=== PATIENT | male | born 1950 | race Caucasian/White ===

== ENCOUNTER → 2018-03-28 | Outpatient (CLI) | payer OTHER, MEDICARE ==
[~2018-03-28] MED LIST: AMARYL4 MG PO; ATIVAN0.5 MG PO; ATORVASTATIN CA80 MG PO; BAYER CHEWABLE81 MG PO; COREG25 MG PO; ELIQUIS5 MG PO; JANUMET XR 50-1 EACH PO; LISINOPRIL20 MG PO; NORCO 5-325 TA1 EACH PO; NORVASC5 MG PO; TRULICITY0.75 MG/0. SUBQ; ZANAFLEX4 MG PO; ZANTAC 150MG T150 MG PO
== END ==
LOC: M.MRI 08:19
DX: S83.241A Other tear of medial meniscus, current injury, right knee, initial encounter (principal); M17.0 Bilateral primary osteoarthritis of knee; M25.761 Osteophyte, right knee; X58.XXXA Exposure to other specified factors, initial encounter; Y93.89 Activity, other specified; Y92.89 Other specified places as the place of occurrence of the external cause; Y99.8 Other external cause status

== ENCOUNTER 2018-04-25 07:06 | Inpatient (IN) | payer OTHER, MEDICARE ==
[2018-04-13 09:56] LABS: URINE BILIRUBIN NEGATIVE (Negative); URINE BLOOD NEGATIVE (Negative); URINE CLARITY CLEAR; URINE COLOR YELLOW; URINE GLUCOSE-RANDOM NEGATIVE (Negative); URINE KETONES NEGATIVE (Negative); URINE LEUKOCYTES-REFLEX NEGATIVE (Negative); URINE NITRITE-REFLEX NEGATIVE (Negative); URINE PROTEIN NEGATIVE (Negative); URINE SPECIFIC GRAVITY 1.025 (1.005-1.030); URINE UROBILINOGEN 0.2 E.U./dl (0.2-1.0)
[2018-04-13 10:39] LABS: HEMATOCRIT 41.6 % (42.0-52.0); HEMOGLOBIN 13.6 gm/dL (14.0-18.0); MCH 29.3 pg (26.0-34.0); MCHC 32.7 g/dL (28.0-37.0); MCV 89.7 fL (80.0-100.0); MPV 8.7 fl. (7.2-11.1); RBC 4.64 mil/uL (4.50-6.00); RDW-CV 14.1 % (10.5-14.5); WBC 8.8 thou/uL (4.0-11.0)
[2018-04-13 10:51] LABS: INR 1.1; PROTIME 10.9 Seconds (9.20-11.50)
[2018-04-13 10:54] LABS: ALBUMIN 3.5 g/dL (3.4-5.0); CALCIUM 8.9 mg/dL (8.5-10.1); CREATININE 0.8 mg/dL (0.6-1.3); POTASSIUM 4.1 mmol/L (3.5-5.1); TOTAL BILIRUBIN 0.6 mg/dL (<0.1-1.0); TOTAL PROTEIN 7.5 g/dL (6.4-8.2)
--- NOTE | 2018-04-13 17:48 | EKG ---
[place] [address] ELECTROCARDIOGRAM REPORT Name: ROCAEL SOLIZ Room: PRE IN [facility].#: [id number] Admission: Attend Phys: Calixto Almaguer II Discharge: Date of : 52 Report #: [id number] THIS REPORT FOR: //name// [facility] Test Date: 2018-04-13 Test Time: 09:08:30 Pat Name: ROCAEL SOLIZ Department: Room: Gender: M Waiter/Waitress Buffet: : 1950 Requested By: Calixto Almaguer Order Number: [id number] Reading MD: Harvinder Mckeon Measurements Intervals Allen Rate: 68 P: 51 MS: 173 QRS: 71 QRSD: 106 T: 54 QT: 388 QTc: 413 Interpretive Statements Sinus rhythm No previous ECG available for comparison Electronically Signed On 04-13-2018 17:47:58 GUIDE DOME[employer]IC TOUR by Harvinder Mckeon [email or web address] <ELECTRONICALLY SIGNED> By: Harvinder Mckeon MD, [facility] 04/13/18 [id number] Harvinder Mckeon MD, FACC /EPI
[~2018-04-25] VITALS: Ht 182.9 cm; Wt 138.3 kg
--- NOTE | ~2018-04-25 | OP ---
[facility] [address] [place] [address] OPERATIVE REPORT Name: ROCAEL SOLIZ Room: [address] M.R.#: [id number] Admission: 04/25/18 Attend Phys: Maria Alejandra Perera Discharge: 04/27/18 Date of : 52 Report #: [id number] THIS REPORT FOR: //name// CC: Vernon Gaytan DATE OF SERVICE: 04/25/2018 PREOPERATIVE DIAGNOSIS: Left knee osteoarthritis. POSTOPERATIVE DIAGNOSIS: Left knee osteoarthritis. PROCEDURE: Left total knee arthroplasty. SURGEON: Calixto Almaguer II, DO [employer] PRINCIPAL: JASON Godinez ANESTHESIA: General endotracheal. ESTIMATED BLOOD LOSS: 50 mL. ANTIBIOTICS: Ancef preoperatively. DRAINS: Medium Hemovac. COMPLICATIONS: None. CONDITION: Stable to recovery room. IMPLANTS: Listed in the operative record and progress note. BRIEF HISTORY: The patient was seen in the preoperative area. Preoperative H and P was performed. Site was marked, questions were answered. Risks and benefits were discussed with the patient in detail about surgery. The patient wished to proceed assuming all risks. DESCRIPTION OF PROCEDURE: The patient was taken to the Operative Suite and placed supine on the operating table and given appropriate anesthesia. A well-padded tourniquet was applied to the upper thigh, which was inflated to 300 mmHg after gravity exsanguination. The operative knee was sterilely prepped and draped. Procedure began by midline incision. This was carried down through the subcutaneous tissues. Medial parapatellar arthrotomy was performed and carried down to the bone. The patella was then everted and excess soft tissues were removed from around the femur. The femoral cutting block was then applied, [facility] [address] [place] [address] OPERATIVE REPORT Name: ROCAEL SOLIZ Room: [address] IN .R.#: [id number] Admission: 04/25/18 Attend Phys: Maria Alejandra Perera Discharge: 04/27/18 Date of : 52 Report #: [id number] checked with a drop manjula for rotational alignment, pinned in appropriate position and appropriate cuts were made. A 4-in-1 cutting block was then applied and checked for rotational alignment, pinned in appropriate position and appropriate cuts were made. The tibia was exposed. The excess meniscus was removed. Retractor was placed on the collateral ligaments. The tibial cutting block was then applied, pinned in appropriate position, checked with a drop manjula for rotational alignment and slope and appropriate cut was made. The tibial bone was removed. Tibial base plate was then applied, checked for rotational alignment with the drop manjula and pinned in appropriate position. Femur was then applied and box cut was reamed. This was then trialed with with appropriate spacer, which showed excellent fit and fill and excellent stability of the knee throughout all range of motion. The patella was reamed in appropriate fashion and sized to appropriate size. Three peg holes were drilled. It was then trialed and showed excellent extension and excellent tracking of the patella within the groove. These trials were then removed. The tibia was punched in appropriate fashion. Bone ends were cleansed with Pulsavac irrigation and cement was mixed and applied to the final implants. Knee was then malleted in position and held the knee in extension and compressed to allow the cement to cure. After it cured, excess was removed using Minerva and osteotome. The wound was then copiously irrigated and the final spacer was then malleted in position. Tourniquet was deflated. Hemostasis was maintained with electrocautery. Pain cocktail was injected. PRP gel was sprayed throughout internal aspects of the knee. The capsule was closed with #2 FiberWire and #1 Vicryl in [id number] fashion. Skin was closed with 2-0 Vicryl and running 3-0 Monocryl. Dermabond was applied. A sterile PolarCare applied. The patient was transported to Recovery Room in stable condition. Counts were correct throughout the procedure. By: [id number] Almaguer II DO /nt
[2018-04-25 13:46] VITALS: BP 130/61
--- NOTE | 2018-04-25 13:51 | NUR ---
PATIENT TRANSFERRED FROM PACU TO ROOM 107. ALERT AND ORIENTED. PAIN 5/10. OXYIR GIVEN. O2 3.5L. CAPNO IN PLACE-SAT 95%. DRESSING TO LEFT KNEE C/D/I. SCD'S AND RIGHT YUSRA IN PLACE. IVF INFUSING ORDERED WATER PROVIDED. ORIENTED TO ROOM AND BED CONTROLS. CALL LIGHT WITHIN REACH. BED ALARM SET. EDUCATED ON FALL PREVENTION.
[2018-04-25 14:42] VITALS: BP 129/68
[2018-04-25 16:00] VITALS: BP 128/71
--- NOTE | 2018-04-25 17:07 | NUR ---
PATIENT REMAINS ALERT AND ORIENTED. PAIN CONTROLLED WITH OXYIR. WORKED WITH PHYSICAL THERAPY THIS AFTERNOON. HEMOVAC IN PLACE. DRESSING TO KNEE C/D/I. TOLERATED DINNER. O2 IN PLACE AT 3L. SAT 96%. AT BEDSIDE. BED ALARM IN USE. CALL LIGHT WITHIN REACH. WILL CONTINUE TO MONITOR.
--- NOTE | 2018-04-25 17:40 | NUR ---
RECIEVED O.T. EVAL AND TX ORDER. WILL DEFER TO P.T. AND NURSING AT THIS TIME. PLEASE ORDER FURTHER O.T. SERVICES IF NEEDED.
[2018-04-25 20:00] VITALS: BP 151/81
[2018-04-26] VITALS (8 sets, daily range): BP systolic 114–148; BP diastolic 61–80
--- NOTE | 2018-04-26 00:15 | NUR ---
INITAL ASSESMENT COMPLETED AT 1999. PT POST OPERATIVE TOTAL LEFT KNEE REPLACEMENT 04/25/18. PT PLACED IN CPM X 2 HRS. PT GIVEN PRN TORADOL AND OXYCODONE FOR PAIN CONTROL WITH GOOD RELIEF. PT VOIDING TOÑO CONCENTRATED URINE PER URINAL. PT TOLERATING FOOD AND FLUIDS WITH OUT DIFFICULTY. CALL LIGHT IN REACH, PT USING APPROPRIATELY.
[2018-04-26 04:51] LABS: HEMATOCRIT 36.1 % (42.0-52.0); HEMOGLOBIN 12.1 gm/dL (14.0-18.0)
--- NOTE | 2018-04-26 14:03 | NUR ---
SPOKE WITH PT.AND . HIS WILL BE ABLE TO HELP HIM IF NEEDED AND WILL BE HOME WITH HIM 06/12. HE HAS A WALKER WITH HIM FROM HOME. HE IS NORMALLY INDEPENDENT. HE HAD QUESTIONS ABOUT THE DIFFERENT TYPES OF THERAPY HE COULD CHOSE FROM. DISCUSSED HOME HEALTH ,OUTPT,AND SKILLED. HE CHOSE HOME HEALTH UNTIL HE FOLLOWS UP WITH . HE CHOSE [facility] FOR [facility]. WILL INITIATE REFERRAL TODAY. PT.STATED HE TAKES ELIQUIS 5MG TWICE A DAY AT HOME CHRONICALLY.
--- NOTE | 2018-04-26 18:08 | NUR ---
PT VSS THIS SHIFT. PT HEMEVAC FELL AND PULLED MOSTLY OUT DURING NOC SHIFT AND WAS COMPLETELY REMOVED AT 1130 THIS SHIFT WITH NO COMPLICATION AND NO BLEEDING. CHANGED DRESSING OVER HEMEVAC TO FOLDED 4X4'S AND TEGADERM ON TOP. PT TOLERATING POLAR PAC AND CPM'S THIS SHIFT. PT PAIN MANAGED ON OXY 10MG Q3 THIS SHIFT. PT TOLERATING DIET THIS SHIFT AND HAVING NO DIFFICULTY WITH URINATION AT THIS TIME. PT KEEPING YUSAR ZOIEE AND SCD'S ON THIS SHIFT. NO BM THIS SHIFT. PT GIVEN OPTION TO STAY THIS SHIFT AND HE STATED HE WANTED ANOTHER DAY TO FEEL BETTER.
[2018-04-27 04:00] VITALS: BP 139/55
[2018-04-27 04:41] LABS: ABSOLUTE BASOPHILS 0.1 thou/uL (0.0-0.2); ABSOLUTE EOSINOPHILS 0.4 thou/uL (0.0-0.7); ABSOLUTE LYMPHOCYTES 2.1 thou/uL (0.8-5.3); ABSOLUTE MONOCYTES 1.2 thou/uL (0.0-1.2); BASOPHILS 0.6 %; EOSINOPHILS 3.6 %; HEMATOCRIT 33.3 % (42.0-52.0); HEMOGLOBIN 11.1 gm/dL (14.0-18.0); LYMPHOCYTES 21.8 %; MCHC 33.5 g/dL (28.0-37.0); MCV 89.4 fL (80.0-100.0); MONOCYTES 12.6 %; NUCLEATED RBCS 0 /100WBC; PLATELET COUNT* 200 thou/uL (150-400); POLYS 61.4 %; RBC 3.72 mil/uL (4.50-6.00); RDW-CV 14.1 % (10.5-14.5); WBC 9.7 thou/uL (4.0-11.0)
--- NOTE | 2018-04-27 04:45 | NUR ---
PT A&Ox4. VITALS STABLE. BP 139/55, P 68, TEMP 98.0, OX 95% ON RA. THIGH HIGH YUSRA ON RLE. MEPILEX CLEAN, DRY AND INTACT. POLAR PACK IN PLACE. UP WITH 1-2, USING GAIT BELT AND WALKER. BILATERAL FOOT PUMPS IN PLACE. PAIN CONTROLLED. CMP RANGE 0-55 FOR 120MIN. CALL LIGHT WITHIN REACH. HOURLY ROUNDING COMPLETE. FALL PRECAUTIONS IN PLACE. WILL CONTINUE TO MONITOR.
[2018-04-27 04:58] LABS: CALCIUM 8.3 mg/dL (8.5-10.1); CREATININE 0.8 mg/dL (0.6-1.3); POTASSIUM 3.9 mmol/L (3.5-5.1)
--- NOTE | 2018-04-27 05:30 | NUR ---
I agree with all of Karla RN charting. Patient's pain is well controlled with pain meds.
[2018-04-27 07:45] VITALS: BP 161/84
[2018-04-27 12:18] VITALS: BP 112/48
[2018-04-27] MEDS ORDERED: SENNA S TABLET1 EACH PO (13:18)
[2018-04-27 14:13] VITALS: BP 134/80
[2018-04-27] MEDS ORDERED: PERCOCET PO (14:21)
[2018-04-27 14:23] VITALS: BP 134/80
--- NOTE | 2018-04-27 14:56 | NUR ---
PT.TO BE DISCHARGED TODAY. SPOKE WITH BENNY/DELORIS AND FAXED HER OP REPORT,DISCHARGE SUMMARY,AND 'S POST OP INSTRUCTIONS TO HER AT [phone]. THEY WILL CALL HIM TOMORROW TO SET UP APPT.
--- NOTE | 2018-04-27 18:02 | NUR ---
PATIENT LEFT UNIT AT 1500. ALERT AND ORIENTED X4. UP WITH ASSIST X1 WITH WALKER AND GAIT BELT. IV DC'D. PAIN BEING MANAGED WITH PO PAIN MEDICATION. DENIES NAUSEA. TOLERATING DIET. ATTENDED THERAPY THIS AM AND PM. ALL PERSONAL ITEMS LEFT WITH PATIENT. DISCHARGE INSTRUCTIONS, PRESCRIPTIONS, AND NEW MEDICATION INFORMATION SENT WITH PATIENT. VSS ON ROOM AIR. HOURLY ROUNDS HAVE BEEN MAINTAINED THROUGHOUT SHIFT. CALL LIGHT IS WITHIN REACH. NURSING WILL CONTINUE TO MONITOR.
--- NOTE | 2018-04-27 18:05 | NUR ---
PATIENT LEFT UNIT AT 1500. ALERT AND ORIENTED X4. UP WITH ASSIST X1 WITH WALKER AND GAIT BELT. IV DC'D. PAIN BEING MANAGED WITH PO PAIN MEDICATION. DENIES NAUSEA. ATTENDED THERAPIES X2 THIS SHIFT. ALL PERSONAL ITEMS LEFT WITH PATIENT. DISCHARGE INSTRUCTIONS, PRESCRIPTIONS, AND NEW MEDICATION INFORMATION SENT WITH PATIENT. VSS ON ROOM AIR. HOURLY ROUNDS HAVE BEEN MAINTAINED THROUGHOUT SHIFT. LEFT WITH VIA CAR.
[2018-04-27 18:09] VITALS: BP 134/80
== END 2018-04-27 15:25 | disposition home health service (06) | DRG 470 ==
LOC: M.PRE 07:06 → M.ORTHSURG 08:46 → M.TBA 08:46 → M.PRE 12:15 → M.ORTHSURG 12:56 → M.PRE 13:04 → M.ORTHSURG 04-27 15:25
PROVIDERS: Family Medicine; Orthopaedic Surgery; ADMIT Internal Medicine
PROC: 0SRD0J9 Replacement of Left Knee Joint with Synthetic Substitute, Cemented, Open Approach (ICD-10-PCS; principal; 2018-04-25)
DX: M17.12 Unilateral primary osteoarthritis, left knee (principal); I10 Essential (primary) hypertension; E78.00 Pure hypercholesterolemia, unspecified; M25.462 Effusion, left knee; E11.9 Type 2 diabetes mellitus without complications; E78.5 Hyperlipidemia, unspecified; K21.9 Gastro-esophageal reflux disease without esophagitis; Z79.899 Other long term (current) drug therapy; Z87.442 Personal history of urinary calculi; Z98.42 Cataract extraction status, left eye; Z98.41 Cataract extraction status, right eye